=== PATIENT | male | born 1985 | race African-American/Black ===

== ENCOUNTER 2022-01-23 17:53 | Emergency (ER) | payer SELFPAY ==
--- NOTE | 2022-01-23 18:03 | PC.NURSE ---
pt came up to intake stating he was sorry but he is going to another hospital.
== END 2022-01-23 18:03 | disposition left against medical advice (07) ==
LOC: ANHED 18:37
DX: Z53.21 Procedure and treatment not carried out due to patient leaving prior to being seen by health care provider (principal)
CPT/HCPCS: 99199

== ENCOUNTER 2022-01-24 10:28 | Emergency (ER) | payer SELFPAY ==
--- NOTE | ~2022-01-24 | XR_ITS ---
EXAMINATION: XR ankle RT 2V DATE: 01/24/2022 11:18 INDICATION: Achilles tendon pain post running TECHNIQUE: Anteroposterior and lateral views of the right ankle were obtained. COMPARISON: None. FINDINGS: Bone alignment is normal. No fracture. Mild osteoarthritis at the right ankle with small anterior ost eophytes. There are couple loose osteochondral bodies within both the anterior and posterior recesses of the right ankle but without evident joint effusion. Moderate-sized plantar calcaneal spur. There is thickening of the shadow of the Achilles tendon with cluster of heterotopic ossicles centered with in the tendon approximately 7.5 cm proximal to the calcaneal insertion. IMPRESSION: 1. Thickening of the Achilles tendon consistent with tendinosis along with internal heterotopic ossif ications suggesting sequela of chronic injury/tear. 2. Mild osteoarthritis with loose osteochondral bodies at the recess of the right ankle joint. Reviewed, dictated and finalized at location B. IMPRESSION: 1. Thickening of the Achilles tendon consistent with tendinosis along with inte rnal heterotopic ossifications suggesting sequela of chronic injury/tear. 2. Mild osteoarthritis with loose osteochondral bodies at the recess of the rig ht ankle joint.
[2022-01-24 10:44] VITALS: BP 152/95; PULSE 89; RESP 16; TEMP 36.1; O2SAT 99
--- NOTE | 2022-01-24 10:51 | ED.LOWEXIN ---
HPI - Extremity Injury (Lower) General Chief Complaint: Extremity Injury, Lower Stated Complaint: Right Foot Pain Time Seen by Provider: 01/24/22 10:51 Source: patient and RN notes reviewed Mode of arrival: ambulatory Limitations: no limitations History of Present Illness HPI Narrative: 36-year-old male presents to the [facility] with complaints of right posterior distal calf, Achilles pain. Patient states that he was dribbling a basketball when he felt a sharp pain in his lower leg. Occurred yesterday. No treatment prior to arrival. Pain with flexion and dorsiflexion. No bruising or swelling noted. No direct trauma. Onset (ago): day(s) (1) Related Data Allergies Allergy/AdvReac Type Severity Reaction Status Date / Time No Known Allergies Allergy Verified 01/24/22 10:37 Review of Systems Review of Systems: All systems reviewed & are unremarkable except as noted in HPI and below Constitutional: Constitutional: Reports no additional constitutional complaints, Denies chills and Denies fever(s) Eyes: Eyes: Reports no additional eye complaints ENT: Reports system reviewed and no additional complaints, except as documented Cardiovascular: Cardiovascular: Reports no additional cardiovascular complaints Respiratory: Respiratory: Reports no additional respiratory complaints Gastrointestinal: Gastrointestinal: Reports no additional gastrointestinal complaints Musculoskeletal: Musculoskeletal: Reports as per HPI and Reports muscle cramps (Right posterior calf distal aspect) Integumentary/Breasts: Skin/Breast: Reports system reviewed and no additional complaints, except as docu Neurologic: Reports system reviewed and no additional complaints, except as documented Psychiatric: Psychiatric: Reports no additional psychiatric complaints Allergic/Immunologic: Allergic/Immunologic: Reports no additional allergic/immunologic complaints PMFSH Past Medical History Medical History (Updated 01/24/22 @ 18:55 by Ariana Terrazas APRN) Patient denies medical problems Surgical History Surgical History (Updated 01/24/22 @ 18:55 by Ariana Terrazas APRN) No pertinent past surgical history Social History Social History (Updated 01/24/22 @ 18:55 by Ariana Terrazas APRN) Gender identity (if verbalized by the patient): Male Comments At the time of my signature, I reviewed and agree with the nursing past medical, surgical, social, and family history. There is no relevant family history pertinent to the patient complaint. Exam Const: General: healthy appearing, no acute distress and alert Nutritional Appearance: well nourished Orientation/consciousness: patient oriented x3 Limitations: no limitations HENMT: Head: normal to inspection Ears: external ears normal Eyes: General: appearance normal, both eyes and all related structures Pupils: Equal, round and reactive pupils present Neck: Neck: normal visual inspection, no lymphadenopathy and no meningeal signs Chest: Chest palpation & inspection: normal inspection of the chest Resp: Effort & Inspection: normal respiratory effort and no use of accessory muscles Auscultation: clear to auscultation bilaterally, no crackles, no rales, no rhonchi and no wheezes Cardio: Rate: regular rate Rhythm: regular rhythm Back/Spine/Pelvis: Cervical Spine: normal cervical lordosis Thoracic/Lumbar Spine: thoracic and lumbar spine normal to inspection Skin: General skin exam: normal color Rashes: no rashes Wounds: no wounds Neuro: General: patient oriented x3, moves all extremities, no meningeal signs and no focal motor deficits Cranial nerves: Yes Equal, round and reactive pupils present Speech: normal speech Gait exam (Neuro): Normal gait present Extrem: General: normal to inspection and capillary refill normal Right lower extremity: ankle Details: tenderness (Tenderness), no edema and abnormal ROM (Pain with dorsiflexion, mild discomfort with flexion. Able to rotate ankle lat
== END 2022-01-24 11:50 | disposition home or self-care (01) ==
PROVIDERS: Emergency Provider Nurse Practitioner
DX: M76.61 Achilles tendinitis, right leg (principal)
CPT/HCPCS: 73600; 99213; G0463

== ENCOUNTER 2022-04-10 10:52 | Emergency (ER) | payer OTHER, SELFPAY ==
--- NOTE | ~2022-04-10 | XR_ITS ---
EXAMINATION: XR chest 1V portable Exam Date/Time: 04/10/2022 14:32 CDT HISTORY: cold symptoms, HTN Comparison: 05/11/2016. RESULT: Lines, tubes, and devices: None. Lungs and pleura: Clear. Cardiomediastinal silhouette: Stable. Other: No acute osseous or upper abdominal finding. IMPRESSION: No acute cardiopulmonary process. Reviewed, dictated and finalized at location K.
[2022-04-10 11:06] VITALS: BP 170/103; PULSE 114; RESP 14; TEMP 36.2; O2SAT 98
--- NOTE | 2022-04-10 11:16 | ECG_ITS ---
Measurements Intervals [place] Rate: 100 P: 35 GA: 147 QRS: -17 QRSD: 122 T: 7 QT: 333 QTc: 429 Interpretive Statements SINUS TACHYCARDIA BORDERLINE T WAVE ABNORMALITY- INFERIOR LEADS BORDERLINE ECG NO PREVIOUS ECG AVAILABLE FOR COMPARISON Electronically Signed On 04-10-2022 12:02:52 CDT by Andrew Haley D.O.
--- NOTE | 2022-04-10 11:31 | ED.GENADULT ---
HPI - General Adult General Chief complaint: Shortness of Breath/Dyspnea Stated complaint: possible high blood pressure, COVID exposure Time Seen by Provider: 04/10/22 11:11 Source: patient Mode of arrival: ambulatory Limitations: no limitations History of Present Illness HPI narrative: Patient is a 36 y/o male who presents to the ED with c/o high blood pressure and COVID type symptoms. Patient reports having runny nose, sore throat, headache, muscle aches, fatigue for the last 2 days. He states his son has been sick for the last 1 week and tested positive for COVID yesterday. He has been trying to social distance from him. Taking Theraflu at home with some relief. Denies any known fever. No cough, shortness of breath, chest pain, abdominal pain, nausea, vomiting. Patient also reports having elevated blood pressures. He was previously on blood pressure medications reportedly. Has history of atrial fibrillation but had cardiac ablation. No blood thinners. Related Data Allergies Allergy/AdvReac Type Severity Reaction Status Date / Time No Known Allergies Allergy Verified 04/10/22 11:08 Review of Systems Review of Systems: CONSTITUTIONAL: Reports fatigue. Denies fever, chills, or sweats. ENT: Reports rhinorrhea, sore throat. CARDIOVASCULAR: Denies chest pain. RESPIRATORY: Denies cough or dyspnea. GASTROINTESTINAL: Denies abdominal pain, nausea, vomiting. MUSCULOSKELETAL: Reports myalgias. NEUROLOGIC: Reports headache. All systems reviewed & are unremarkable except as noted in HPI and below PMFSH Past Medical History Medical History Achilles rupture, right Atrial fib/flutter, transient HTN (hypertension) Surgical History Surgical History H/O cardiac radiofrequency ablation History of cholecystectomy Family History Family History Other Diabetes mellitus Heart disease Social History Social History Smoking status: Never smoker Alcohol intake: never Substance use: never Additional occupation/education comments: [employer] Gender identity (if verbalized by the patient): Male Exam Narrative: GENERAL: Well appearing, well-nourished, non-toxic, in no acute distress. HEAD: Normocephalic, atraumatic. EYES: PERRL/EOMI, conjunctivae clear bilaterally. THROAT: Pharynx clear, no exudate. MMs moist. NECK: Supple. No adenopathy, no masses. RESPIRATORY: Airway patent, respirations nonlabored. Clear to auscultation bilaterally, no rales, rhonchi, wheezing. CARDIOVASCULAR: Regular rate and rhythm without murmurs, rubs, or gallops. Peripheral pulses 2+ and equal bilaterally. ABDOMINAL: Soft, nontender, nondistended, no hepatosplenomegaly. Normoactive BS. MUSCULOSKELETAL: Moves all extremities. Strength/ROM intact without gross deformities or TTP. No edema. SKIN: Warm, dry, normal color. No rashes. NEURO: A&O X3. Speech clear. Cranial nerves II-XII grossly intact. Steady gait. No ataxic movements. PSYCHIATRIC: Appropriate mood and affect. Normal interaction. Course Vital Signs Vital signs: Vital Signs Temperature 97.1 F L 04/10/22 11:06 Pulse Rate 114 H 04/10/22 11:06 Respiratory Rate 14 04/10/22 11:06 Blood Pressure 170/103 H 04/10/22 11:06 Pulse Oximetry 98 04/10/22 11:06 Temperature 97.1 F L 04/10/22 11:06 Pulse Rate 114 H 04/10/22 11:06 Respiratory Rate 14 04/10/22 11:06 Blood Pressure 170/103 H 04/10/22 11:06 Pulse Oximetry 98 04/10/22 11:06 Medical Decision Making [facility] Narrative Medical decision making narrative: Patient presented to ED with multiple viral type symptoms. Recent exposure to COVID-19. Also reporting elevated blood pressures. BP 170/103 upon arrival, did improve to 150 systolic without intervention. Tachycar
[2022-04-10 12:27] LABS: Basophils Percent Auto 0.4 % (0.2-1.2); Eosinophils Percent Auto 0.3 % (0-4.4); Hematocrit 48.2 % (42.0-52.0); Immature Granulocyte Absolute 0.01 K/mm3 (0.00-0.031); Immature Granulocyte Percent A 0.1 % (0-0.5); Lymphocytes Absolute Auto 1.03 K/mm3 (0.9-3.2); Lymphocytes Percent Auto 14.9 % (18.3-44.2); Mean Corpuscular HGB Conc 33.2 g/dl (32-36); Mean Corpuscular Hemoglobin 29.8 pg (26-34); Mean Corpuscular Volume 89.8 fl (80-100); Mean Platelet Volume 11.6 fl (7.4-10.4); Monocytes Absolute Auto 0.6 K/mm3 (0.1-0.6); Monocytes Percent Auto 8.8 % (2.6-8.5); Neutrophils Absolute Auto 5.2 K/mm3 (1.3-6.7); Neutrophils Percent Auto 75.5 % (45.5-73.1); Platelet Count Result 191 k/mm3 (150-375); Red Blood Count 5.37 M/mm3 (4.6-6.20); Red Cell Distribution Width 14.3 % (11.5-14.5); White Blood Count 6.9 K/mm3 (4.5-10.0)
[2022-04-10 12:37] LABS: Alanine Aminotransferase 29 U/L (6-50); Albumin Level 4.6 g/dL (3.5-5.1); Alkaline Phosphatase 70 U/L (38-126); Anion Gap 12 mmol/L (8-16); Aspartate Amino Transferase 31 U/L (17-59); Bilirubin,Total 0.5 mg/dL (0.2-1.3); Blood Urea Nitrogen 8 mg/dL (9-20); Carbon Dioxide 30 mmol/L (22-30); Chloride 101 mmol/L (98-107); Estimated CRCL calculation 98 ml/min; Estimated Glomerular Filt Rate > 60; Glucose 97 mg/dL (65-110); Potassium 3.9 mmol/L (3.4-5.0); Sodium 143 mmol/L (137-145)
[2022-04-10 12:48] LABS: Troponin I < 0.012 ng/mL (0.000-0.034)
[2022-04-10] MEDS: SODIUM CHLORIDE 0.9% IV 1,000 ML 999 ML IV CONT (12:51)
[2022-04-10 13:03] LABS: SARS-CoV-2 RNA PCR Negative
== END 2022-04-10 15:20 | disposition home or self-care (01) ==
PROVIDERS: Physician Assistant; Emergency Provider Emergency Medicine
DX: Z20.822 Contact with and (suspected) exposure to COVID-19 (principal); I10 Essential (primary) hypertension; R00.0 Tachycardia, unspecified; R94.31 Abnormal electrocardiogram [ECG] [EKG]
CPT/HCPCS: 36415; 71045; 80053; 84484; 85025; 93005; 96360; 99283; C9803; J7030; U0003; U0005

== ENCOUNTER 2022-07-14 09:42 | Inpatient (IN) | payer OTHER, SELFPAY ==
[2022-07-14] VITALS (45 sets, daily range): BP systolic 143–186; BP diastolic 83–113; PULSE 74–110; RESP 13–29; TEMP 36.7; O2SAT 92–100; BMI 34.4
--- NOTE | ~2022-07-14 | XR_ITS ---
EXAMINATION: XR chest 2V DATE: 07/14/2022 10:15 INDICATION: Chest pain and weakness. Irregular heart rate. TECHNIQUE: PA and lateral views of the chest were obtained. COMPARISON: Chest radiograph dated 04/10/2022 FINDINGS: The lungs remain clear with no focal airspace opacities, pulmonary edema, pleural effusion or pneumot horax. The cardiomediastinal silhouette is normal. Mild lower thoracic spondylosis. IMPRESSION: 1. No acute cardiopulmonary disease. Reviewed, dictated and finalized at location A. ILIZATION TECHNICIAN
--- NOTE | 2022-07-14 09:44 | ECG_ITS ---
Measurements Intervals [place] Rate: 80 P: 19 ID: 126 QRS: -19 QRSD: 104 T: 31 QT: 347 QTc: 402 Interpretive Statements SINUS RHYTHM LEFTWARD AXIS BORDERLINE ECG COMPARED TO ECG 04/10/2022 11:58:54 NO SIGNIFICANT CHANGE Electronically Signed On 07-14-2022 17:16:57 PRINTING MACHINE OPERATOR TAPE RULES by James Foster M.D.
[2022-07-14 10:46] LABS: Partial Thromboplastin Time 25.5 SECONDS (22.3-36.8)
[2022-07-14 10:51] LABS: Alanine Aminotransferase 28 U/L (6-50); Albumin Level 4.8 g/dL (3.5-5.1); Alkaline Phosphatase 64 U/L (38-126); Anion Gap 8 mmol/L (8-16); Aspartate Amino Transferase 34 U/L (17-59); Bilirubin,Total 0.6 mg/dL (0.2-1.3); Blood Urea Nitrogen 11 mg/dL (9-20); Carbon Dioxide 29 mmol/L (22-30); Chloride 101 mmol/L (98-107); Estimated CRCL calculation 108 ml/min; Estimated Glomerular Filt Rate > 60; Glucose 111 mg/dL (65-110); Lipase 46 U/L (23-300); Potassium 3.9 mmol/L (3.4-5.0); Sodium 138 mmol/L (137-145)
[2022-07-14 10:57] LABS: Troponin I < 0.012 ng/mL (0.000-0.034)
[2022-07-14 11:00] LABS: Basophils Percent Auto 0.7 % (0.2-1.2); Eosinophils Absolute Auto 0.1 K/mm3 (0-0.3); Eosinophils Percent Auto 1.5 % (0-4.4); Hemoglobin 16.6 g/dL (14.0-18.0); Immature Granulocyte Absolute 0.02 K/mm3 (0.00-0.031); Immature Granulocyte Percent A 0.3 % (0-0.5); Lymphocytes Absolute Auto 1.03 K/mm3 (0.9-3.2); Lymphocytes Percent Auto 16.9 % (18.3-44.2); Mean Corpuscular HGB Conc 33.2 g/dl (32-36); Mean Corpuscular Hemoglobin 30.4 pg (26-34); Mean Corpuscular Volume 91.6 fl (80-100); Mean Platelet Volume 11.5 fl (7.4-10.4); Monocytes Absolute Auto 0.6 K/mm3 (0.1-0.6); Monocytes Percent Auto 9.2 % (2.6-8.5); Neutrophils Absolute Auto 4.3 K/mm3 (1.3-6.7); Neutrophils Percent Auto 71.4 % (45.5-73.1); Platelet Count Result 183 k/mm3 (150-375); Red Blood Count 5.46 M/mm3 (4.6-6.20); White Blood Count 6.1 K/mm3 (4.5-10.0)
--- NOTE | 2022-07-14 14:36 | ED.CHESTPAIN ---
HPI - Chest Pain General Chief Complaint: Chest Pain Stated Complaint: chest pain Time Seen by Provider: 07/14/22 14:19 History of Present Illness HPI narrative: Patient is a 37-year-old male with a history of A. fib status post ablation presenting with chest pain. Patient states that he woke this morning with a burning chest pain in the center of his chest. States that he ate some fruit and some yogurt which improved his pain. States that he also had an episode where it felt like his heart was racing. States that this also improved after eating. Currently, he states that he still has some central chest burning. States that he felt nauseated earlier but this is improved. He denies shortness of breath. No fevers or cough. No vomiting or diarrhea. No dysuria. No leg swelling. Related Data Allergies Allergy/AdvReac Type Severity Reaction Status Date / Time No Known Allergies Allergy Verified 07/14/22 17:09 Review of Systems Review of Systems: All systems reviewed & are unremarkable except as noted in HPI and below PMFSH Past Medical History Medical History (Updated 07/15/22 @ 09:14 by Saskia Camargo PA-C) Achilles rupture, right Atrial fib/flutter, transient Close exposure to COVID-19 virus HTN (hypertension) Surgical History Surgical History H/O cardiac radiofrequency ablation H/O left knee surgery History of cholecystectomy Family History Family History (Updated 07/15/22 @ 02:08 by Jackie Vinson RN) Other Diabetes mellitus Father Heart disease Sibling Congestive heart failure Sibling Congestive heart failure Social History Social History (Updated 07/14/22 @ 22:18 by Lelo Jolly NP) Social History: 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 He lives with his significant other and has 2 children. His parents are his durable power vba developer for healthcare. The patient is a lifelong nonsmoker. He does not use any alcohol or illicit drugs. The patient smoked marijuana in the past. Code status full code Smoking status: Never smoker Second hand tobacco smoke exposure: No Additional smoking assessment comments: moderate user of marijuana for about 2 years, quit in 2016 Alcohol intake: never Drinks per week: 0 Substance use: never Substance use type: marijuana Last use: 2016 Lack of Transportation: No Lack of Food: Never True Current Housing: I Have Housing Concerned About Future Housing: No Difficulty Paying Gas/Electric Bills: No Difficulty Paying for Meds: No Currently Unemployed: No Education: High School Diploma/GED Difficulty w/ Childcare or Family Care: No Additional occupation/education comments: [employer] Gender identity (if verbalized by the patient): Male Spiritual care concerns: No Exam Narrative: GENERAL: Well-appearing, well-nourished, and in no acute distress. HEAD: Normocephalic, atraumatic. EYES: PERRLA and EOMI. ENT: Nares clear, no rhinorrhea or epistaxis. Mucous membranes moist. NECK: Supple. CHEST: Clear to auscultation. No respiratory distress. HEART: Regular rate and rhythm. No murmur heard. Normal peripheral pulses. ABDOMEN: Soft, nontender, nondistended, normal active bowel sounds. EXTREMITIES: Normal range of motion. No edema. SKIN: Warm, dry, no rash. NEURO: No focal deficits. Alert and oriented x3. PSYCH: Normal mood and affect. Course Vital Signs Vital signs: Vital Signs Temperature 98.1 F 07/14/22 10:19 Pulse Rate 86 07/14/22 10:19 Respiratory Rate 16 07/14/22 10:19 Blood Pressure 171/113 H 07/14/22 10:19 Pulse Oximetry 99 07/14/22 10:19 Oxygen Delivery Room Air 07/14/22 10:19 Temperature 97.8 F 07/15/22 16:00 Pulse Rate 72 07/15/22 16:00 Respiratory Rate 20 07/15/22 16:00 Blood Pressure 155/102 H 07/15/22 16:00 Pulse Oximetry 97 07/15/22 16:00 Oxygen Delivery Room A
[2022-07-14] MEDS: KETOROLAC 15 MG/ML VIAL (*BKC) IV PUSH (14:46)
[2022-07-14] MEDS: SODIUM CHLORIDE 0.9% IV 1,000 ML 999 ML IV CONT (14:46)
[2022-07-14] MEDS: BELLADONNA ALK/PHENOB ELIX 10 ML, MAG HYDROX/ALUMINUM HYD/SIMETH 30 ML, LIDOCAINE HCL 2... PO (14:47)
--- NOTE | 2022-07-14 15:38 | ECG_ITS ---
Measurements Intervals [place] Rate: 78 P: 17 CA: 137 QRS: -10 QRSD: 104 T: -11 QT: 353 QTc: 404 Interpretive Statements SINUS RHYTHM MODERATE T-WAVE ABNORMALITY, CONSIDER ANTERIOR ISCHEMIA [-0.1+ mV T WAVE IN I/aVL/V5/V6] COMPARED TO ECG 07/14/2022 09:49:18 BIPHASIC PRECORDIAL T-WAVE ABNORMALITY IS NOW PRESENT Electronically Signed On 07-14-2022 17:27:36 FACILITIES MAINTENANCE ENGINEER by James Foster M.D.
[2022-07-14] MEDS: ASPIRIN 81 MG CHEWABLE TABLET 324 MG PO (16:17)
[2022-07-14] MEDS: HEPARIN SODIUM 5,000 UNITS/ML VIAL 4000 UNITS IV PUSH ×2 (16:22→22:55)
--- NOTE | 2022-07-14 16:22 | PC.NURSE ---
heart healthy food tray ordered
[2022-07-14] MEDS: HEPARIN SOD/D5W 100 UNITS/ML 25,000 UNITS/250 ML BAG 10 UNITS IV CONT (16:45)
[2022-07-14 16:52] LABS: Influenza A QL RT-PCR Negative (Negative); Influenza B QL RT-PCR Negative (Negative); SARS-CoV-2 RNA PCR Negative
--- NOTE | 2022-07-14 17:00 | PM.CNCAR ---
Assessment and Plan Assessment and plan (1) Non-ST elevation [place] (NSTEMI): Code(s): I21.4 - Non-ST elevation (NSTEMI) myocardial infarction Status: Acute Plan This is a 37-year-old man with a history of hypertension and prior history of atrial fib that was ablated about 8 years ago. He presents with episodes of chest pain this morning and has evidence of acute coronary syndrome with a following some ischemic T-wave changes and his ECG and a rise in his troponin to 1.5. He is currently asymptomatic. I will prescribe aspirin, Brilinta, metoprolol, rosuvastatin and heparin. If he remains stable like this we will arrange for coronary angiography on Sunday if he has instability over the weekend we will proceed more urgently with angiography James Foster MD [facility] History of Present Illness History of Present Illness Consult date/time: 07/14/22 17:00 Consult reason: chest pain Reason For Visit: Chest Pain Narrative: This is a 37-year-old gentleman I am seeing in the emergency room at the request of the ED staff because of acute coronary syndrome/non ST elevation IL. Patient is unknown to me prior to this encounter. He came to the emergency room this morning after he experienced some chest pain at home that awakened from sleep initially. He was in bed and he suddenly noticed a burning substernal pain in the center of his chest that initially did not create much concern he thought he might of 16 something that bothers his stomach he tried to eat some things like he over to get some relief the discomfort did subside and then recurred again later he then became more concerned and had a came to the emergency room with his fiancee in their private vehicle. He has been evaluated in the emergency room his initial electrocardiogram was essentially unremarkable he received anti-inflammatory medication at look 2nd some steroids as well that the discomfort did improve and has now subsided. The patient's 1st troponin level at the emergency room was normal the 2nd sample however has risen to 1.5. A repeat EKG now shows some biphasic anterior precordial T-wave inversions which were not there on the presenting tracing. I came down to the emergency room to see him any he is feeling well at this time. He is no longer having any of the pain that he describes going on this morning. He has been treated with aspirin and following the elevation of troponin he has been given a bolus of heparin and is now being placed on a drip. He has not received a beta-flaca a statin or any other anti-platelet therapy. He has no previous history of coronary artery disease. Interestingly he does have a history of atrial fibrillation stating that when was in his early 30s he would have episodes of rapid tachycardia and palpitations. He describes being evaluated by physicians down at [facility] in the [facility] and being treated with ablation in their electrophysiology lab. I he no longer follows with those physicians he did for a short time after the procedure he has not had any of the a palpitations that were bothering him at the time of his atrial fibrillator he does have a history of hypertension he is not taking any medication for that. He has no history of dyslipidemia or diabetes. He denies any family history of premature coronary disease although he states his father has coronary disease and has a pacemaker. Review of Systems Constitutional: Constitutional: Reports no additional constitutional complaints Eyes: Eyes: Reports no additional eye complaints ENT: Reports system reviewed and no additional complaints, except as documented Cardiovascular: Cardiovascular: Reports as per HPI Respiratory: Respiratory: Reports no additional respiratory complaints Gastrointestinal: Gastrointestinal: Reports no additional gastrointestinal complaints Musculoskeletal: Musculoskeletal: Reports no additional musculoskeletal compla
--- NOTE | 2022-07-14 17:43 | ADMGEN ---
This patient, Chauncey Turner, was admitted to Virtual Bed IMU-6, currently boarded in ER 11. Patient/family oriented to hospital policies and general routines including ID bracelet, bed and alarms, visiting hours, pain management, procedures, bathroom and other care routines, personal items, smoking policy, room service/diet, and visiting hours. Information on how to activate the Rapid Response Team has been discussed. Patient/Family are encouraged to report perceived risks to care and to ask questions if they do not understand what they are told or what they should do.
--- NOTE | 2022-07-14 18:00 | PC.NURSE ---
called pharmacy to send up Denia and Prernaor. they state they will send it up shortly.
--- NOTE | 2022-07-14 18:29 | PC.NURSE ---
Dr. Foster made aware of pt's 6 hour Troponin of 2.250. pt is resting in stretcher comfortably. no active chest pain at this time.
[2022-07-14] MEDS: ROSUVASTATIN 10 MG TABLET 20 MG PO (20:10)
[2022-07-14] MEDS: METOPROLOL SUCCINATE EXT REL 50 MG TABCR PO (20:11)
--- NOTE | 2022-07-14 20:54 | PM.IMHP ---
H&P: HPI History of Present Illness Date/Time: 07/14/22 20:54 Chief Complaint: Chest pain Narrative: This is a 37-year-old male patient who has a history of hypertension and a past history of atrial fibrillation with an ablation approximately 8 years ago. The patient presented to the emergency room with complaints of chest pain this morning. The patient stated that he thought that it was just his stomach and that he was hungry. The patient stated that he ate some then and it felt better for a little bit and then the pain came back. The patient stated that his pain was in the middle of his chest and that he ate some fruit and some yogurt need felt that his pain went away however the pain came back it was central chest any felt that he was nauseated and his arms were heavy. The patient felt this heaviness in his chest as if somebody was sitting on his chest. The 1st troponin was nonreactive. Then the next 2 troponins were 1.530 and 2.250 respectively. The patient was negative for influenza A/B and COVID. Cardiology has been consulted. The patient was found to have some ischemic T-wave changes. Heparin drip was started. The plan is to take the patient for cardiac catheterization on Sunday if he remains stable. However if he is not stable and emergent cardiac catheterization may need to be performed. The patient is being admitted to inpatient status on the date of service of 07/14/2022. Review of Systems Review of Systems: See HPI All systems reviewed & are unremarkable except as noted in HPI and below Constitutional: Constitutional: Reports as per HPI and Reports no additional constitutional complaints Eyes: Eyes: Reports as per HPI and Reports no additional eye complaints ENT: Reports system reviewed and no additional complaints, except as documented and Reports Normal hearing present Cardiovascular: Cardiovascular: Reports no additional cardiovascular complaints Respiratory: Respiratory: Reports no additional respiratory complaints and Reports no additional respiratory complaints Gastrointestinal: Gastrointestinal: Reports as per HPI and Reports no additional gastrointestinal complaints Musculoskeletal: Musculoskeletal: Reports no additional musculoskeletal complaints Integumentary/Breasts: Skin/Breast: Reports system reviewed and no additional complaints, except as docu and Reports as per HPI Neurologic: Reports system reviewed and no additional complaints, except as documented, Reports as per HPI and Reports Normal hearing present Psychiatric: Psychiatric: Reports no additional psychiatric complaints and Reports as per HPI Endocrine: Endocrine: Reports no additional endocrine complaints Hematologic/Lymphatic: Hematologic/Lymphatic: Reports no additional hematologic/lymphatic complaints Allergic/Immunologic: Allergic/Immunologic: Reports no additional allergic/immunologic complaints PMFSH Past Medical History Medical History (Updated 07/14/22 @ 22:22 by Lelo Jolly NP) Achilles rupture, right Atrial fib/flutter, transient Close exposure to COVID-19 virus HTN (hypertension) Surgical History Surgical History H/O cardiac radiofrequency ablation H/O left knee surgery History of cholecystectomy Family History Family History Other Diabetes mellitus Heart disease Social History Social History (Updated 07/14/22 @ 22:18 by Lelo Jolly NP) Social History: 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 He lives with his significant other and has 2 children. His parents are his durable power collections attorney for healthcare. The patient is a lifelong nonsmoker. He does not use any alcohol or illicit drugs. The patient smoked marijuana in the past. Code status full code Smoking status: Never smoker Second hand tobacco smoke exposure: No Additional smoking assessment commen
[2022-07-14 22:33] LABS: Partial Thromboplastin Time 50.4 SECONDS (22.3-36.8)
[2022-07-14] MEDS: TICAGRELOR 90 MG TABLET PO (22:35)
[2022-07-15] VITALS (23 sets, daily range): BP systolic 109–165; BP diastolic 87–102; PULSE 68–93; RESP 16–21; TEMP 36.4–36.8; O2SAT 90–99; BMI 34.7
--- NOTE | 2022-07-15 | ECHO_ITS ---
Patient Info Name: Chauncey Turner Age: 37 years : 1985 Gender: Male Ht: 70 in Wt: 240 lbs BSA: 2.36 m2 HR: 73 bpm BP: 156 / 88 mmHg Heart Rhythm: Sinus Rhythm Technical Quality: Good Exam Date: 07/15/2022 10:18 AM Exam Location: [facility] Card Pulmonary Patient Status: Inpatient Admit Date: 07/14/2022 Staff Ordering Physician: Lelo Jolly NP Research Statistician: MARIELLA Attending Provider: Saskia Camargo PA-C Referring Physician: Rik ROSENBAUM; Exam Type: CA echo dop color flow w con Study Info Indications R07.9 - Chest pain, unspecified Complete two-dimensional, color flow and Doppler transthoracic echocardiogram is performed. Summary 1. Complete two-dimensional, color flow and Doppler transthoracic echocardiogram is performed. 2. Moderate concentric left ventricular hypertrophy with normal size and normal systolic function. 3. No ischemic wall motion abnormalities were identified. 4. Slightly enlarged left atrium. 5. No valvular abnormality. Left Ventricle Left ventricular chamber dimension is normal. Left ventricular systolic function is normal, estimated at 65-70%. There is moderate concentric increased left ventricular wall thickness. The left ventricular diastolic function is grade I diastolic dysfunction. Right Ventricle Right ventricular chamber dimension is normal. Left Atria Left atrial chamber dimension is mildly enlarged. Right Atria Right atrial chamber dimension is normal. Aortic Valve The aortic valve is normal. Pulmonic Valve The pulmonic valve is normal. Mitral Valve The mitral valve has normal leaflets. Tricuspid Valve The tricuspid valve leaflets are normal. Pericardium/Pleural The pericardium appears normal. Aorta The aortic root size at the sinus of Valsalva is normal. Report Signatures
--- NOTE | 2022-07-15 01:51 | PC.NURSE ---
This patient, Chauncey Turner, was admitted to IMU Room 201-01 at 0150. Patient/family oriented to hospital policies and general routines including ID bracelet, bed and alarms, visiting hours, pain management, procedures, bathroom and other care routines, personal items, smoking policy, room service/diet, and visiting hours. Information on how to activate the Rapid Response Team has been discussed. Patient/Family are encouraged to report perceived risks to care and to ask questions if they do not understand what they are told or what they should do.
[2022-07-15 05:26] LABS: Basophils Percent Auto 0.5 % (0.2-1.2); Eosinophils Absolute Auto 0.1 K/mm3 (0-0.3); Eosinophils Percent Auto 1.1 % (0-4.4); Hematocrit 47.1 % (42.0-52.0); Hemoglobin 15.6 g/dL (14.0-18.0); Immature Granulocyte Absolute 0.01 K/mm3 (0.00-0.031); Immature Granulocyte Percent A 0.1 % (0-0.5); Lymphocytes Absolute Auto 1.62 K/mm3 (0.9-3.2); Lymphocytes Percent Auto 20.2 % (18.3-44.2); Mean Corpuscular HGB Conc 33.1 g/dl (32-36); Mean Corpuscular Hemoglobin 29.5 pg (26-34); Mean Platelet Volume 11.9 fl (7.4-10.4); Monocytes Absolute Auto 0.8 K/mm3 (0.1-0.6); Monocytes Percent Auto 10.1 % (2.6-8.5); Neutrophils Absolute Auto 5.5 K/mm3 (1.3-6.7); Platelet Count Result 185 k/mm3 (150-375); Red Blood Count 5.29 M/mm3 (4.6-6.20); Red Cell Distribution Width 13.6 % (11.5-14.5)
[2022-07-15 05:35] LABS: Alanine Aminotransferase 28 U/L (6-50); Albumin Level 4.3 g/dL (3.5-5.1); Alkaline Phosphatase 70 U/L (38-126); Anion Gap 7 mmol/L (8-16); Aspartate Amino Transferase 43 U/L (17-59); Bilirubin,Total 0.6 mg/dL (0.2-1.3); Blood Urea Nitrogen 9 mg/dL (9-20); Calcium 8.9 mg/dL (8.4-10.2); Carbon Dioxide 31 mmol/L (22-30); Chloride 104 mmol/L (98-107); Cholesterol 172 mg/dL (0-200); Estimated CRCL calculation 109 ml/min; Estimated Glomerular Filt Rate > 60; Glucose 95 mg/dL (65-110); HDL Direct 52 mg/dL; Lactic Acid Reflex 1.4 mmol/L (0.7-2.0); Magnesium 2.2 mg/dL (1.6-2.3); Potassium 3.8 mmol/L (3.4-5.0); Sodium 142 mmol/L (137-145); Triglycerides 100 mg/dL (<150)
[2022-07-15 05:37] LABS: Partial Thromboplastin Time 117.3 SECONDS (22.3-36.8)
[2022-07-15 05:46] LABS: LDL Cholesterol Direct 80 mg/dL
[2022-07-15] MEDS: METOPROLOL SUCCINATE EXT REL 50 MG TABCR PO (08:35)
[2022-07-15] MEDS: TICAGRELOR 90 MG TABLET PO ×2 (08:35→20:04)
[2022-07-15] MEDS: ASPIRIN 81 MG ENTERIC TABLET PO (08:36)
--- NOTE | 2022-07-15 09:06 | PM.IMPN ---
Progress Note: A&P Assessment and Plan (1) Non-ST elevation NM (NSTEMI): Code(s): I21.4 - Non-ST elevation (NSTEMI) myocardial infarction Status: Acute Assessment and Plan: presented with chest pain onset 07/14 findings consistent with acute coronary syndrome. troponin elevated to 2.25 evidence of T-wave changes on EKG. appreciate cardiology consultation continue heparin drip continue aspirin, Brilinta, rosuvastatin, and metoprolol succinate 50 mg plan for angiography on Sunday, 07/17 as long as patient remains hemodynamically stable (2) HTN (hypertension): Code(s): I10 - Essential (primary) hypertension Status: Chronic Assessment and Plan: patient reports he was weaned from antihypertensives several years ago blood pressures elevated on presentation, however have improved to the 150s systolic continue with metoprolol succinate which has been started this admission monitor blood pressure trends (3) Atrial fib/flutter, transient: Status: Resolved Assessment and Plan: reports history of ablation about 8 years ago 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 He is feeling okay today. He endorses 4/10 central chest pressure and heaviness. This has improved overall from presentation. He has no shoulder or back pain. No arm pain, jaw pain. No numbness or tingling. Denies nausea, vomiting, sweats. No fevers or chills. No dizziness or lightheadedness. No shortness of breath. No additional concerns including abdominal pain, swelling, dysuria. He does note mild right knee swelling which she believes is related to his Achilles injury. Review of Systems Review of Systems: General: Well-nourished, well-appearing 37-year-old male, sitting up in bed, comfortable, NARD Neuro: awake, alert and oriented x4, speech clear, no focal neuro deficits noted HEENMT: normocephalic, atraumatic, EOMI, sclerae anicteric Respiratory: clear to auscultation bilaterally, nonlabored breathing Cardio: regular rate, regular rhythm with S1-S2 Abdomen: nondistended, normoactive bowel sounds, soft, nontender to palpation Extremities: bilateral lower extremities without edema, erythema, or tenderness to palpation Skin: no rashes or lesions, warm and dry Psych: appropriate mood and affect, judgment and insight intact Objective Data Vital Signs Vital Signs: Vital Signs - 24 hr 07/14/22 10:19 07/14/22 14:27 07/14/22 14:27 Temperature 98.1 F Pulse Rate 86 83 83 Respiratory Rate 16 24 H Blood Pressure 171/113 H 168/99 H Pulse Oximetry 99 100 Oxygen Delivery Room Air 07/14/22 16:51 07/14/22 18:04 07/15/22 01:31 Temperature 98.2 F Pulse Rate 87 94 72 Respiratory Rate 20 17 18 Blood Pressure 165/96 H 159/89 H 109/87 Pulse Oximetry 100 99 96 Oxygen Delivery 07/14/22 15:37 07/14/22 15:45 07/14/22 16:00 Temperature Pulse Rate 89 90 Respiratory Rate 21 H 21 H Blood Pressure Pulse Oximetry 97 98 100 Oxygen Delivery 07/14/22 16:15 07/14/22 16:30 07/14/22 16:32 Temperature Pulse Rate 80 87 89 Respiratory Rate 24 H 15 17 Blood Pressure 165/96 H Pulse Oximetry 98 99 Oxygen Delivery 07/14/22 16:45 07/14/22 17:00 07/14/22 17:01 Temperature Pulse Rate 110 H 83 88 Respiratory Rate 24 H 22 H
--- NOTE | 2022-07-15 10:14 | PM.PNCARD ---
Progress Note: A&P Assessment and Plan (1) Non-ST elevation [place] (NSTEMI): Code(s): I21.4 - Non-ST elevation (NSTEMI) myocardial infarction Status: Acute Plan 37-year-old man with history of hypertension and remote history of atrial fibrillation which has been ablated in the past. He now presents with chest pain and evidence of acute coronary syndrome. He is stable and on appropriate medical therapy. Will proceed with angiography on Sunday or sooner if he becomes more unstable. Will tell the nurses that is fine with me if he comes off telemetry long enough to clean up in the bathroom James Foster MD [facility] Subjective Date/time seen: Date of service: 07/15/22 10:14 Interval history: Follow-up visit in this 37-year-old man with: Chest pain/objective evidence of acute coronary syndrome/non ST-elevation IA. Patient is stable and on guideline directed medical therapy. He feels well this morning asking if it is possible for him to come off telemetry to clean up in the bathroom. Understands the plans for proceeding with angiography on Sunday. Procedure again discussed in detail. Exam Const: General: comfortable and no acute distress HENMT: Mouth: Yes moist mucous membranes Eyes: Sclera: sclerae normal Neck: Neck: supple and no JVD Resp: Effort & Inspection: normal respiratory effort Auscultation: clear to auscultation bilaterally Cardio: Rate: regular rate Rhythm: regular rhythm Other: No murmur no gallop no rub GI: GI Palp: Yes Soft to palpation Auscultation: normal bowel sounds Skin: General skin exam: normal color Neuro: Other: Alert and oriented x3 Extrem: Other: No edema, normal distal pulses Objective Data Vital Signs Vital Signs: Vital Signs - 24 hr 07/14/22 10:19 07/14/22 14:27 07/14/22 14:27 Temperature 36.7 C Pulse Rate 86 83 83 Respiratory Rate 16 24 H Blood Pressure 171/113 H 168/99 H Pulse Oximetry 99 100 Oxygen Delivery Room Air 07/14/22 16:51 07/14/22 18:04 07/15/22 01:31 Temperature 36.8 C Pulse Rate 87 94 72 Respiratory Rate 20 17 18 Blood Pressure 165/96 H 159/89 H 109/87 Pulse Oximetry 100 99 96 Oxygen Delivery 07/14/22 15:37 12/09/22 15:45 07/14/22 16:00 Temperature Pulse Rate 89 90 Respiratory Rate 21 H 21 H Blood Pressure Pulse Oximetry 97 98 100 Oxygen Delivery 07/14/22 16:15 07/14/22 16:30 07/14/22 16:32 Temperature Pulse Rate 80 87 89 Respiratory Rate 24 H 15 17 Blood Pressure 165/96 H Pulse Oximetry 98 99 Oxygen Delivery 07/14/22 16:45 07/14/22 17:00 07/14/22 17:01 Temperature Pulse Rate 110 H 83 88 Respiratory Rate 24 H 22 H 19 Blood Pressure 165/97 H Pulse Oximetry 98 96 97 Oxygen Delivery 07/14/22 17:15 07/14/22 17:30 07/14/22 17:45 Temperature Pulse Rate 87 89 86 Respiratory Rate 23 H 22 H 27 H Blood Pressure Pulse Oximetry Oxygen Delivery 07/14/22 18:00 07/14/22 18:01 07/14/22 18:15 Temperature Pulse Rate 90 90 86 Respiratory Rate 21 H 19 18 Blood Pressure 159/89 H Pulse Oximetry Oxygen Delivery 07/14/22 18:30 07/14/22 18:45 07/14/22 19:00 Temperature Pulse Rate 86 91 86 Respiratory Rate 13 14 20 Blood Pressure Pulse Oximetry 99 99 100 Oxygen Delivery 07/14/22 19:01 07/14/22 19:12 07/14/22 19:15 Temperature Pulse Rate 89 89 86 Respiratory Rate 19 26 H 20 Blood Pressure 186/95 H 171/111 H Pulse Oximetry 100 98 99 Oxygen Delivery 07/14/22 19:30 07/14/22 19:45 07/14/22 20:00 Temperature Pulse Rate 93 86 93 Respiratory Rate 21 H 18 27 H Blood Pressure Pulse Oximetry 99 98 95 Oxygen Delivery 07/14/22 20:01 07/14/22 20:15 07/14/22 20:30 Temperature Pulse Rate 91 87 87 Respiratory Rate 29 H 19 20 Blood Pressure 172/83 H Pulse Oximetry 98 98 99 Oxygen Delivery 07/14/22 20:45 07/14/22 21:00 07/14/22 21:01 Temperature Pulse Rate 86 95 103 H Res
[2022-07-15] MEDS: ROSUVASTATIN 10 MG TABLET 20 MG PO (10:48)
[2022-07-15 12:06] LABS: Partial Thromboplastin Time 74.6 SECONDS (22.3-36.8)
[2022-07-15 13:43] LABS: Free T4 Free Thyroxine Reflex 1.12 ng/dL (0.78-2.19)
[2022-07-15 15:14] LABS: Total Triiodothyronine (T3) 1.24 NG/ML (0.97-1.69)
[2022-07-15] MEDS: HEPARIN SOD/D5W 100 UNITS/ML 25,000 UNITS/250 ML BAG 11 UNITS IV CONT (16:24)
[2022-07-15 18:56] LABS: Partial Thromboplastin Time 52.5 SECONDS (22.3-36.8)
[2022-07-15] MEDS: HEPARIN SODIUM 5,000 UNITS/ML VIAL 4000 UNITS IV PUSH (20:02)
[2022-07-16] VITALS (17 sets, daily range): BP systolic 106–200; BP diastolic 83–105; PULSE 64–123; RESP 14–20; TEMP 36.3–36.8; O2SAT 91–99
[2022-07-16 05:26] LABS: Partial Thromboplastin Time 196.6 SECONDS (22.3-36.8)
[2022-07-16] MEDS: ROSUVASTATIN 10 MG TABLET 20 MG PO (08:49)
[2022-07-16] MEDS: TICAGRELOR 90 MG TABLET PO ×2 (08:49→20:39)
[2022-07-16] MEDS: ASPIRIN 81 MG ENTERIC TABLET PO (08:49)
[2022-07-16] MEDS: METOPROLOL SUCCINATE EXT REL 50 MG TABCR PO (08:50)
[2022-07-16] MEDS: ACETAMINOPHEN 325 MG TABLET 650 MG PO (09:16)
[2022-07-16] MEDS: DOCUSATE SODIUM 100 MG CAPSULE PO ×2 (09:16→20:39)
[2022-07-16] MEDS: polyethylene glycoL 3350 17 GM POWD.PACK PO (09:17)
[2022-07-16] MEDS: HEPARIN SOD/D5W 100 UNITS/ML 25,000 UNITS/250 ML BAG 11 UNITS IV CONT (12:00)
--- NOTE | 2022-07-16 12:25 | PM.PNCARD ---
Progress Note: A&P Assessment and Plan (1) Non-ST elevation [place] (NSTEMI): Code(s): I21.4 - Non-ST elevation (NSTEMI) myocardial infarction Status: Acute Plan 37-year-old man with evidence of acute coronary syndrome. ECG suggesting anterior ischemia. Will proceed tomorrow morning with angiography. Further recommendations ND of course forthcoming those results. Patient understands the procedure and is eager to proceed tomorrow James Foster MD [facility] Subjective Date/time seen: Date of service: 07/16/22 12:25 Interval history: This is a follow-up visit in this 37-year-old man with: Chest pain intermittently evidence of non ST elevation [place]/acute coronary syndrome. He is stable clinically plans for angiography tomorrow have been reviewed in detail again. He is asymptomatic the last couple of days offering no complaints Exam Const: General: comfortable and no acute distress HENMT: Mouth: Yes moist mucous membranes Eyes: Sclera: sclerae normal Neck: Neck: supple and no JVD Resp: Effort & Inspection: normal respiratory effort Auscultation: clear to auscultation bilaterally Cardio: Rate: regular rate Rhythm: regular rhythm GI: GI Palp: Yes Soft to palpation Auscultation: normal bowel sounds Skin: General skin exam: normal color Neuro: Other: Alert and oriented x3 Extrem: Other: Good perfusion no edema Objective Data Vital Signs Vital Signs: Vital Signs - 24 hr 07/15/22 14:00 07/15/22 16:00 07/15/22 16:00 Temperature 36.6 C Pulse Rate 79 75 Respiratory Rate 20 Blood Pressure 155/102 H Pulse Oximetry 97 Oxygen Delivery Room Air 07/15/22 16:00 07/15/22 18:00 07/15/22 20:00 Temperature 36.4 C Pulse Rate 72 75 82 Respiratory Rate 18 Blood Pressure 159/95 H Pulse Oximetry 98 Oxygen Delivery 07/15/22 20:00 07/15/22 20:00 07/15/22 22:00 Temperature Pulse Rate 80 77 Respiratory Rate Blood Pressure Pulse Oximetry 98 Oxygen Delivery Room Air 07/16/22 00:00 07/16/22 00:00 07/16/22 00:00 Temperature 36.6 C Pulse Rate 75 73 Respiratory Rate 20 Blood Pressure 148/90 H Pulse Oximetry 98 98 Oxygen Delivery Room Air 07/16/22 02:00 07/16/22 04:00 07/16/22 04:00 Temperature Pulse Rate 72 68 Respiratory Rate Blood Pressure Pulse Oximetry 98 Oxygen Delivery Room Air 07/16/22 04:00 07/16/22 06:00 07/16/22 08:00 Temperature 36.3 C L 36.5 C Pulse Rate 67 64 78 Respiratory Rate 18 16 Blood Pressure 106/98 H 165/97 H Pulse Oximetry 98 99 Oxygen Delivery 07/16/22 08:50 07/16/22 08:00 07/16/22 08:00 Temperature Pulse Rate 76 90 Respiratory Rate Blood Pressure Pulse Oximetry Oxygen Delivery Room Air Intake/Output Intake/Output: Intake & Output 07/13/22 07/14/22 07/15/22 07/16/22 23:59 23:59 23:59 23:59 Intake Total 1000 1210 250 Output Total 2300 1300 Balance 1000 -1090 -1050 Meds/Results Medications: Active Medications Generic Name Dose Route Start Last Admin Trade Name Freq PRN Reason Stop Dose Admin Acetaminophen 650 mg 07/16/22 08:59 07/16/22 09:16 Acetaminophen 325 Mg Tablet PO 650 mg Q4H PRN Administration Mild Pain (1-3) or Fever Aspirin 81 mg 07/15/22 09:00 07/16/22 08:49 Aspirin 81 Mg Enteric Tablet PO 81 mg QAM IMELDA Administration Docusate Sodium 100 mg 07/16/22 09:00 07/16/22 09:16 Docusate Sodium 100 Mg Capsule PO 100 mg Q12HR IMELDA Administration Heparin Sodium (Porcine) 4,000 units 07/14/22 16:14 07/15/22 20:02 Heparin Sodium 5,000 Units/Ml Vial IV PUSH 4,000 units PRN PRN Administration aPTT less than 55 seconds Heparin Sodium (Porcine) 3,500 units 07/14/22 16:14 Heparin Sodium 5,000 Units/Ml Vial IV PUSH PRN PRN aPTT 55 - 70 seconds Heparin Sodium/Dextrose 25,000 units in 250 mls @ 11 mls/hr 07/14/22 16:15 07/16/22 12:00 Heparin Sodium/D5w 100 Units/
[2022-07-16 13:03] LABS: Partial Thromboplastin Time 70.4 SECONDS (22.3-36.8)
--- NOTE | 2022-07-16 13:07 | ECG_ITS ---
Measurements Intervals [place] Rate: 85 P: 34 CA: 147 QRS: -22 QRSD: 105 T: -11 QT: 357 QTc: 427 Interpretive Statements SINUS RHYTHM BORDERLINE LEFT AXIS DEVIATION [QRS AXIS < -20] MODERATE VOLTAGE CRITERIA FOR LVH, CONSIDER NORMAL VARIANT [MEETS CRITERIA IN ONE OF: R(aVL), S(V1), R(V5), R(V5/V6)+S(V1)] MODERATE T-WAVE ABNORMALITY, CONSIDER ANTEROLATERAL ISCHEMIA [-0.1+ mV T WAVE IN V3- V6] COMPARED TO ECG 07/14/2022 15:48:49 NO SIGNIFICANT CHANGES Electronically Signed On 07-17-2022 6:17:59 ASSISTANT PROFESSOR OF EDUCATION by James Foster M.D.
[2022-07-16] MEDS: METOPROLOL TARTRATE INJ 5 MG/5 ML VIAL IV PUSH (13:26)
[2022-07-16] MEDS: HEPARIN SOD/D5W 100 UNITS/ML 25,000 UNITS/250 ML BAG 13 UNITS IV CONT (13:37)
--- NOTE | 2022-07-16 13:47 | PC.NURSE ---
Per Dr. Foster no bolus on heparin gtt for PTT 70.4, only rate change per protocol.
--- NOTE | 2022-07-16 15:46 | PM.IMPN ---
Progress Note: A&P Assessment and Plan (1) Non-ST elevation [place] (NSTEMI): Code(s): I21.4 - Non-ST elevation (NSTEMI) myocardial infarction Status: Acute Assessment and Plan: presented with chest pain onset 07/14 findings consistent with acute coronary syndrome. troponin elevated to 2.25 evidence of T-wave changes on EKG. appreciate cardiology consultation continue heparin drip continue aspirin, Brilinta, rosuvastatin, and metoprolol succinate 50 mg plan for angiography tomorrow, 07/17 (2) HTN (hypertension): Code(s): I10 - Essential (primary) hypertension Status: Chronic Assessment and Plan: patient reports he was weaned from antihypertensives several years ago blood pressures have been labile this admission. 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 with online tutor at [facility] in [place], no longer following with Cardiology currently patient is in sinus rhythm (4) Abnormal TSH: Code(s): R79.89 - Other specified abnormal findings of blood chemistry Status: Acute Assessment and Plan: TSH is mildly elevated at 5.1 T4 is within normal limits will need repeat TSH with reflex in 6 weeks as an outpatient Subjective Date/time seen: 07/16/22 15:46 Interval history: date of service: 07/16/2022 Chauncey Turner is a 37-year-old male with a history of atrial fibrillation no longer on medication, hypertension, right Achilles rupture, and strong family history of coronary artery disease who is seen in follow-up for NSTEMI. is feeling well today. He does have some persistent pressure in his chest that he rates about a 2/10. It is her was obtained the improve with Tylenol. He complains of constipation. He had a small stool about 2 days ago but his last true bowel movement was about 4-5 days ago. He has no other complaints. Denies shortness of breath, cough, nausea, vomiting, dizziness, lightheadedness. Review of Systems Review of Systems: All systems reviewed & are unremarkable except as noted in HPI and below Exam Narrative: General: ? Well-nourished, well-appearing 37-year-old male,? sitting up in bed, comfortable, NARD Neuro: awake, alert and oriented x4, speech clear, no focal neuro deficits noted HEENMT:? normocephalic, atraumatic, EOMI, sclerae anicteric Respiratory: clear to auscultation bilaterally, nonlabored breathing Cardio: regular rate, regular rhythm with S1-S2 Abdomen:? nondistended, normoactive bowel sounds, soft, nontender to palpation Extremities:? bilateral lower extremities without edema, erythema, or tenderness to palpation Skin: no rashes or lesions, warm and dry Psych: appropriate mood and affect, judgment and insight intact Objective Data Vital Signs Vital Signs: Vital Signs - 24 hr 07/15/22 16:00 07/15/22 16:00 07/15/22 16:00 Temperature 97.8 F Pulse Rate 75 72 Respiratory Rate 20 Blood Pressure 155/102 H Pulse Oximetry 97 Oxygen Delivery Room Air 07/15/22 18:00 07/15/22 20:00 07/15/22 20:00 Temperature 97.6 F Pulse Rate 75 82 80 Respiratory Rate 18 Blood Pressure 159/95 H Pulse Oximetry 98 Oxygen Delivery 07/15/22 20:00 07/15/22 22:00 07/16/22 00:00 Temperature 97.9 F Pulse Rate 77 75 Respiratory Rate 20 Blood Pressure 148/90 H Pulse Oximetry 98 98 Oxygen Delivery Room Air 07/16/22 00:00 07/16/22 00:00 07/16/22 02:00 Temperature Pulse Rate 73 72 Respiratory Rate Blood Pressure Pulse Oximetry 98 Oxygen Delivery Room Air 07/16/22 04:00 07/16/22 04:00 07/16/22 04:00 Temperature 97.4 F L Pulse Rate 68 67 Respiratory Rate 18 Blood Pressure 106/98 H Pulse Oximetry 98 98 Oxygen Delivery Room Air 07/16/22
[2022-07-16 20:18] LABS: Partial Thromboplastin Time 83.8 SECONDS (22.3-36.8)
[2022-07-17] VITALS (19 sets, daily range): BP systolic 136–159; BP diastolic 84–102; PULSE 65–91; RESP 14–20; TEMP 36.3–36.7; O2SAT 97–98
[2022-07-17 03:19] LABS: Partial Thromboplastin Time 103.6 SECONDS (22.3-36.8)
[2022-07-17] MEDS: METOPROLOL SUCCINATE EXT REL 50 MG TABCR PO (07:52)
[2022-07-17] MEDS: TICAGRELOR 90 MG TABLET PO (07:52)
[2022-07-17] MEDS: ASPIRIN 81 MG ENTERIC TABLET PO (07:53)
[2022-07-17] MEDS: HEPARIN SOD/D5W 100 UNITS/ML 25,000 UNITS/250 ML BAG 13 UNITS IV CONT (08:14)
--- NOTE | 2022-07-17 10:40 | PC.NURSE ---
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
--- NOTE | 2022-07-17 10:40 | WPDMODSED ---
Moderate Sedation Note-Pt Data Patient Data Diagnosis: acute coronary syndrome/ non ST elevation [place] Present Complaint: intermittent chest pain both with and without exertion. Procedure to be performed/Plan: Left heart catheterization Allergies Allergy/AdvReac Type Severity Reaction Status Date / Time No Known Allergies Allergy Verified 07/14/22 17:09 Home Medications Medication Instructions Recorded Confirmed Type ibuprofen 600 mg tablet 600 mg PO TID PRN pain #30 tabs 01/24/22 07/14/22 Rx Current Medications: Active Medications Acetaminophen (Acetaminophen 325 Mg Tablet) 650 mg PO Q4H PRN PRN Reason: Mild Pain (1-3) or Fever Last Admin: 07/16/22 09:16 Dose: 650 mg Aspirin (Aspirin 81 Mg Enteric Tablet) 81 mg PO [facility] Last Admin: 07/17/22 07:53 Dose: 81 mg Docusate Sodium (Docusate Sodium 100 Mg Capsule) 100 mg PO Q12HR [facility] Last Admin: 07/16/22 20:39 Dose: 100 mg Heparin Sodium (Porcine) (Heparin Sodium 5,000 Units/Ml Vial) 4,000 units IV PUSH PRN PRN PRN Reason: aPTT less than 55 seconds Last Admin: 07/15/22 20:02 Dose: 4,000 units Heparin Sodium (Porcine) (Heparin Sodium 5,000 Units/Ml Vial) 3,500 units IV PUSH PRN PRN PRN Reason: aPTT 55 - 70 seconds Heparin Sodium/Dextrose (Heparin Sodium/D5w 100 Units/Ml) 25,000 units in 250 mls @ 13 mls/hr IV CONT .[id number] [facility]; Protocol Last Admin: 07/17/22 08:14 Dose: 1,300 units/hr, 13 mls/hr Metoprolol Succinate (Metoprolol Succinate Ext Rel 50 Mg Tabcr) 50 mg PO [facility] Last Admin: 07/17/22 07:52 Dose: 50 mg Morphine Sulfate (Morphine Sulfate (*Crx) 2 Mg/Ml Inj) 2 mg IV PUSH Q4H PRN PRN Reason: Pain Rated 7-10 Polyethylene Glycol (Polyethylene Glycol 3350 17 Gm Powd.Pack) 17 gm PO [facility] Last Admin: 07/16/22 09:17 Dose: 17 gm Rosuvastatin Calcium (Rosuvastatin 10 Mg Tablet) 20 mg PO [facility] Last Admin: 07/16/22 08:49 Dose: 20 mg Ticagrelor (Ticagrelor 90 Mg Tablet) 90 mg PO Q12HR [facility] Last Admin: 07/17/22 07:52 Dose: 90 mg Sedation/Anesthesia: No previous sedation/anesthesia problems (including family history). [facility] Past Medical History Medical History (Updated 07/15/22 @ 09:14 by Saskia Camargo PA-C) Achilles rupture, right Atrial fib/flutter, transient Close exposure to COVID-19 virus HTN (hypertension) Surgical History Surgical History H/O cardiac radiofrequency ablation H/O left knee surgery History of cholecystectomy Family History Family History (Updated 07/15/22 @ 02:08 by Jackie Vinson RN) Other Diabetes mellitus Father Heart disease Sibling Congestive heart failure Sibling Congestive heart failure Social History Social History (Updated 07/14/22 @ 22:18 by Lelo Jolly NP) Social History: 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 He lives with his significant other and has 2 children. His parents are his durable power edge brusher for healthcare. The patient is a lifelong nonsmoker. He does not use any alcohol or illicit drugs. The patient smoked marijuana in the past. Code status full code Smoking status: Never smoker Second hand tobacco smoke exposure: No Additional smoking assessment comments: moderate user of marijuana for about 2 years, quit in 2016 Alcohol intake: never Drinks per week: 0 Substance use: never Substance use type: marijuana Last use: 2016 Lack of Transportation: No Lack of Food: Never True Current Housing: I Have Housing Concerned About Future Housing: No Difficulty Paying Gas/Electric Bills: No Difficulty Paying for Meds: No Currently Unemployed: No Education: High School Diploma/GED Difficulty w/ Childcare or Family Care: No Additional occupation/education comments: [employer] Gender identity (if verbalized by the patient): Male Spiritual care concerns: No Mod Sed Physical Exam Physical Exam P
--- NOTE | 2022-07-17 11:31 | WPDCARDPROC ---
Cardiac Cath Procedure Note Date of procedure:: 07/17/22 Performing physician:: James Foster MD Indication:: chest pain / troponin elevation / acute coronary syndrome Brief clinical history:: this is a 37-year-old man with significant hypertension for which he has not been compliant with medical therapy. He entered the hospital last week with chest pain episode there was a modest troponin rise and his ECG demonstrates precordial biphasic T-wave abnormalities. Procedure Procedure performed:: Left ventriculogram coronary angiogram Angio-Seal to right femoral artery Sedation/Medication given:: fentanyl 50 mg Versed 2 mg start time 11:03 a.m. case end time 11:25 a.m. sedation provided by Shira Pool RN, trained observer Access site:: right femoral artery Estimated blood loss:: 25 cc Procedure note:: patient was brought to the cardiac catheterization lab in the postabsorptive state where the right femoral triangle was prepared and draped in the usual fashion. Using the modified Seldinger technique a 5 Micronesian vascular sheath was placed in the right common femoral artery after this left heart catheterization was carried out a 5 Micronesian angled pigtail catheter was used left-sided to perform a left ventriculogram in the DONAHUE projection. As well as to document left-sided hemodynamics. The catheter was then exchanged for a 5 Micronesian FL4 catheter used to engage inject the left coronary artery in multiple projections. Then a 5 Micronesian JR4 catheter was used to engage the right coronary artery orthogonal projections after this the cineangiograms were reviewed and the case was terminated an angiogram was performed to the femoral artery through the sheath and then a 6 Micronesian Angio-Seal device was deployed with a good hemostatic result. Procedure was well tolerated and uncomplicated. There was no evidence of groin hematoma upon leaving the [facility]. Findings:: Hemodynamics: Central aortic pressure was 166 over 94 left ventricle 166/0 end-diastolic pressure 13 there is no gradient on pullback across the aortic valve. Left ventricle: The LV is of normal dimension and exhibits concentric hypertrophy contractility is hyperdynamic in all segments ejection fraction visually estimates to be 80%. The left main coronary artery is widely patent the left anterior descending is a large caliber vessel extending down to around the apex the LAD as well as its branches is smooth and angiographically normal in appearance circumflex is a moderate caliber artery giving rise to the marginal branches the circumflex system is also smooth and angiographically normal in appearance the right coronary artery is large caliber and dominant to the posterior circulation the right coronary artery is smooth and angiographically normal in appearance Conclusion:: 1. right coronary dominant circulation with no angiographic evidence of coronary disease 2. vigorous left ventricular systolic function hyperdynamic appearance with systemic hypertension James Foster MD FACC
[2022-07-17] MEDS: DOCUSATE SODIUM 100 MG CAPSULE PO (13:31)
[2022-07-17] MEDS: SODIUM CHLORIDE 0.9% IV 1,000 ML 125 ML IV CONT (13:31)
[2022-07-17] MEDS: polyethylene glycoL 3350 17 GM POWD.PACK PO (13:32)
[2022-07-17] MEDS: ROSUVASTATIN 10 MG TABLET 20 MG PO (13:32)
[2022-07-17] MEDS: ACETAMINOPHEN 325 MG TABLET 650 MG PO (15:49)
--- NOTE | 2022-07-17 16:06 | PM.DS ---
DS: Admitting Diagnosis Discharge Date 07/17/2022 Admitting Diagnosis chest pain DS: Discharge Diagnosis Discharge Diagnosis (1) Non-ST elevation SD (NSTEMI): Code(s): I21.4 - Non-ST elevation (NSTEMI) myocardial infarction Status: Acute Assessment and Plan: presented with chest pain onset 07/14 findings consistent with acute coronary syndrome. troponin elevated to 2.25 evidence of T-wave changes on EKG. patient was seen in consultation by Cardiology drip placed on heparin drip initially and medical therapy was initiated including aspirin, Brilinta, rosuvastatin, and metoprolol succinate. underwent cardiac catheterization on 07/17/2022 which revealed no angiographic evidence of coronary disease he will follow-up with cardiology as an outpatient will continue aspirin, Brilinta, rosuvastatin, and metoprolol succinate upon discharge (2) HTN (hypertension): Code(s): I10 - Essential (primary) hypertension Status: Chronic Assessment and Plan: patient reports he was weaned from antihypertensives several years ago patient started on metoprolol succinate 50 mg daily as noted above instructed to monitor blood pressures at intermittently in follow-up with Cardiology for further monitoring of BP trends (3) Atrial fib/flutter, transient: Status: Resolved Assessment and Plan: reports history of ablation about 8 years ago 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 [place], no longer following with Cardiology currently patient in sinus rhythm during admission he will establish care with Cardiology and will continue to monitor (4) Abnormal TSH: Code(s): R79.89 - Other specified abnormal findings of blood chemistry Status: Acute Assessment and Plan: TSH is mildly elevated at 5.1 T4 within normal limits will need repeat TSH with reflex in 6 weeks as an outpatient per his primary care provider DS: Summary Hospital Course Hospital Course: date of admission: 07/14/2022 date of discharge: 07/17/2022 Chauncey Turner is a 37-year-old male with a history of atrial? fibrillation s/p ablation no longer on medication, hypertension, right Achilles rupture, and strong family history of coronary artery disease who presented to the emergency department on 07/14/2022 with complaints of burning central chest pain with associated nausea. On presentation to the ED, his blood pressure was elevated at 171/113 with additional vital signs stable, laboratory workup unremarkable including initial troponin negative, however repeat troponin was elevated at 1.53 and EKG revealed T-wave abnormalities. Patient was admitted to the hospitalist service for further evaluation management was seen in consultation by Cardiology. Heparin drip was initiated invasion was monitored closely. He remained hemodynamically stable, therefore patient was monitored closely and cardiac catheterization was scheduled for 07/17/2022 which did not reveal evidence of coronary disease. Patient will continue with medical management and follow-up with cardiology as an outpatient. His pain resolved he was feeling back to his usual state of health. Dietary and lifestyle modifications discussed. Also discussed with the patient worrisome signs and symptoms for which to return and he was educated on his medications. He was referred to the on-call PCP and strongly encouraged to establish care with a primary care provider. Patient was discharged in hemodynamically stable condition on 07/17/2022. Time Spent with Patient Time attestation: Total time spent providing and/or coordinating discharge services: 40 minutes Time spent: Greater than 30 minutes Exam Narrative: General: ? Well-nourished, well-appearing 37-year-old male,? sitting up in bed, comfortable, NARD Neuro: awake, alert and oriented x4, speech clear, no focal neuro deficits noted HEENMT:? normocephalic, atraumat
== END 2022-07-17 17:43 | disposition home or self-care (01) | DRG 281 ==
LOC: ANHED 14:41 → ANHIMU 17:02
PROVIDERS: General Practice; Nurse Practitioner; Specialist; Admitting Provider Family Medicine; Emergency Provider Emergency Medicine; Visit Provider Physician Assistant
PROC: 4A023N7 Measurement of Cardiac Sampling and Pressure, Left Heart, Percutaneous Approach (ICD-10-PCS; CPT 93452; principal; 2022-07-17 11:00)
PROC: 4A023N7 Measurement of Cardiac Sampling and Pressure, Left Heart, Percutaneous Approach (ICD-10-PCS; 2022-07-17 11:00)
DX: I21.4 Non-ST elevation (NSTEMI) myocardial infarction (principal); I48.92 Unspecified atrial flutter; I48.91 Unspecified atrial fibrillation; I10 Essential (primary) hypertension; R79.89 Other specified abnormal findings of blood chemistry; Z20.822 Contact with and (suspected) exposure to COVID-19; Z90.49 Acquired absence of other specified parts of digestive tract
CPT/HCPCS: 36415; 71046; 80053; 80061; 83605; 83690; 83735; 84439; 84443; 84480; 84484; 85025; 85610; 85730; 87636; 93005; 93458; 96361; 96374; 99291; A9270; C1760; C1887; C1894; C8929; G0269; J1644; J1885; J2250; J3010; J7030; J7040